=== PATIENT | female | born 1965 | race Two or more races ===

== ENCOUNTER 2019-08-08 01:43 | Emergency (ER) | payer MEDICAID, OTHER ==
[~2019-08-08] VITALS: Ht 175.3 cm; Wt 88.0 kg
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
[2019-08-08 04:43] VITALS: BP 151/102
--- NOTE | 2019-08-08 04:43 | NUR ---
Patient discharged to home in stable condition. Written and verbal after care instructions given. Patient verbalizes understanding of instruction.
== END 2019-08-08 04:44 | disposition home or self-care (01) ==
LOC: ER 01:44
DX: S50.12XA Contusion of left forearm, initial encounter (principal); J45.909 Unspecified asthma, uncomplicated; Z88.0 Allergy status to penicillin; Z88.1 Allergy status to other antibiotic agents; Z59.0 Homelessness; W07.XXXA Fall from chair, initial encounter; Y93.89 Activity, other specified; Y92.89 Other specified places as the place of occurrence of the external cause; Y99.8 Other external cause status
CPT/HCPCS: 73090-TC; 73110